=== PATIENT | female | born 1995 | race Caucasian/White ===

== ENCOUNTER 2016-07-17 13:12 | Observation (INO) | payer OTHER, BC ==
[~2016-07-17] VITALS: Ht 162.6 cm; Wt 61.3 kg
[~2016-07-17 13:12] MED LIST: CITALOPRAM HBR40 MG PO; PERCOCET 5/31 TABLET PO; TRI CYCLEN PO; VENTOLIN HFA18 GM IH; ZOFRAN4 MG PO; ZYRTEC10 M3 PO
[2016-07-17 14:49] LABS: EOSINOPHIL (%) 1.3 % (0-5); EOSINOPHIL COUNT 0.1 K/uL (0-0.3); HEMATOCRIT 40.5 % (36.0-46.0); IMMATURE GRANULOCYTE (%) 0.4 % (0.0-0.7); INSTRUMENT ABS NEUTROPHIL CT 5.5 K/uL; LYMPHOCYTE COUNT 1.6 K/uL (1.0-2.8); MCH 30.8 PG (29.0-34.0); MCHC 33.8 G/DL (30.0-36.0); MEAN PLAT.VOLUME 9.7 uM^3 (9.5-12.4); MONOCYTE (%) 6.6 % (3-12); MONOCYTE COUNT 0.5 K/uL (0-0.8); NEUTROPHIL (%) 70.6 % (45-76); NEUTROPHIL COUNT 5.5 K/uL (1.8-6.4); PLATELET COUNT 259 K/uL (156-360); RBC DIS.WIDTH-CV 11.9 % (11.8-14.6); RBC DIS.WIDTH-SD 39.8 % (39-53); RED BLOOD COUNT 4.45 M/uL (3.80-5.20); WHITE BLOOD COUNT 7.8 K/uL (4.1-10.2)
[2016-07-17 14:58] LABS: CHLORIDE 109 mEq/L (99-109); POTASSIUM 4.1 mEq/L (3.7-5.4); SODIUM 142 mEq/L (136-147)
[2016-07-17 15:00] LABS: ADD MIUA? NO; BILIRUBIN NEGATIVE; BLOOD NEGATIVE; COLOR STRAW ((YELLOW)); GLUCOSE (STRIP) NEGATIVE; KETONES NEGATIVE; LEUKOCYTES NEGATIVE; NITRITE NEGATIVE; PROTEIN (STRIP) NEGATIVE; SPECIFIC GRAVITY 1.004 (1.000-1.030); UROBILINOGEN 0.2 MG/DL (0.2-1.0)
[2016-07-17 15:01] LABS: GLUCOSE 85 mg/dL (70-99)
[2016-07-17 15:02] LABS: ANION GAP 8 MEQ/L (2-14)
[2016-07-17 15:03] LABS: TOTAL BILIRUBIN 0.3 mg/dL (0.0-1.0)
[2016-07-17 15:04] LABS: ALKALINE PHOSPHATASE 41 IU/L (3-129); GFR ESTIMATE (CALCULATED) > 59 mL/min/
[2016-07-17 15:05] LABS: UREA NITROGEN (BUN) 9 mg/dL (9-23)
[2016-07-17 15:07] LABS: CREATINE KINASE 89 IU/L (1-294); TOTAL CK 89 IU/L (1-294)
[2016-07-17 15:13] LABS: QUANTITATIVE HCG < 4.0 MIU/ML
[2016-07-17 15:14] LABS: CK-MB 0.6 ng/mL (0.0-4.9)
[2016-07-17] MEDS ORDERED: JUNEL1 EAC1 PO (16:38)
[2016-07-17] MEDS ORDERED: DAILY VITE1 EAC1 PO (16:39)
[2016-07-17] MEDS ORDERED: VENLAFAXINE HCL75 M3 PO (16:39)
[2016-07-17] MEDS ORDERED: MOTRIN IB200 MG PO (16:40)
[2016-07-17] MEDS ORDERED: NAPROSYN500 MG PO (16:40)
[2016-07-17] MEDS ORDERED: JUNEL FE 1/21 TABLET PO (16:41)
[2016-07-17 21:30] VITALS: BP 136/74
[2016-07-17 23:55] LABS: AMPHETAMINES QUANT VALUE 0 NG/ML; BARBITUATES QUANT VALUE 0 NG/ML; BENZODIAZEPINES QUANT VALUE 0 NG/ML; BENZODIAZEPINES, URINE SCREEN Negative (200 ng/mL); MARIJUANA QUANT VALUE 0 NG/ML; OPIATES QUANTITATIVE VALUE 0 NG/ML; PHENCYCLIDINE QUANT VALUE 0 NG/ML
[2016-07-18 04:00] VITALS: BP 117/66
[2016-07-18 07:26] VITALS: BP 123/72
[2016-07-18] MEDS ORDERED: ALPRAZOLAM0.25 M2 PO (10:06)
[2016-07-18 10:38] VITALS: BP 132/77
== END 2016-07-18 11:53 | disposition home or self-care (01) ==
LOC: EME 13:12 → 5WEST 17:50 → EDOF 17:50 → 5WEST 20:56
PROVIDERS: Emergency Medicine; Hospitalist
DX: R53.1 Weakness (principal); R26.2 Difficulty in walking, not elsewhere classified; R53.83 Other fatigue; T75.4XXD Electrocution, subsequent encounter; F41.9 Anxiety disorder, unspecified; J45.20 Mild intermittent asthma, uncomplicated
CPT/HCPCS: 70450; 70551; 73718; 80053; 80306 90; 81003; 82550; 82553; 84443; 84702; 85025; 93005; 99202; 99281; 99285; G0378; G8978 GP CI; G8979 GP CH; G8987 GO CI; G8988 GO CH; J7030